=== PATIENT | female | born 1990 | race Caucasian/White ===

== ENCOUNTER → 2024-01-12 | Emergency (ER) | payer OTHER ==
[~2024-01-12] VITALS: Ht 167.6 cm; Wt 65.8 kg
== END | disposition left against medical advice (07) ==
LOC: ER 14:07
DX: M25.561 Pain in right knee (principal); V49.88XA Car occupant (driver) (passenger) injured in other specified transport accidents, initial encounter; Y93.89 Activity, other specified; Y92.89 Other specified places as the place of occurrence of the external cause; Y99.8 Other external cause status; Z88.1 Allergy status to other antibiotic agents

== ENCOUNTER 2024-01-19 14:44 | Emergency (ER) | payer OTHER ==
[~2024-01-19] VITALS: Ht 167.6 cm; Wt 65.8 kg
== END 2024-01-19 17:25 | disposition home or self-care (01) ==
LOC: ER 14:45
DX: M25.561 Pain in right knee (principal); Z88.1 Allergy status to other antibiotic agents